=== PATIENT | male | born 1945 | race Caucasian/White ===

== ENCOUNTER 2020-07-30 11:53 | Inpatient (IN) | payer MEDICARE ==
[~2020-07-30] VITALS: Ht 177.8 cm; Wt 73.1 kg
[~2020-07-30 11:53] MED LIST: ALBUTEROL; AUGMENTIN 875 M1 TA1 PO; FORADIL AEROLIZER; LISINOPRIL/HCTZ1 TA1 PO; Ventolin 02.5 MG/3 M INH
[2020-07-30 12:03] VITALS: BP 117/64
[2020-07-30 12:39] LABS: HEMATOCRIT 39.4 % (42.0-52.0); MEAN CELL VOLUME 86.4 fl (80.0-94.0); MEAN CORPUSCULAR HGB 28.3 pg (27.0-31.0); MEAN CORPUSCULAR HGB CONC 32.7 g/dl (33.0-37.0); MEAN PLATELET VOLUME 9.9 fl (9.6-12.3); PLATELET COUNT AUTOMATED 330 10*3/uL (130-400); RED BLOOD COUNT 4.56 10*6/uL (4.50-5.90); RED CELL DISTRI WIDTH 13.2 % (0-14.5); WHITE BLOOD COUNT 3.8 10*3/uL (4.8-10.8)
[2020-07-30 12:50] LABS: ACT PARTIAL THROMBO TIME 28.6 SECONDS (20.0-32.1); INTERNATIONAL NORM RATIO 1.1 (2.0-3.5)
[2020-07-30 12:54] LABS: ALBUMIN 3.7 gm/dl (3.1-4.5); ALKALINE PHOSPHATASE 58 U/L (45-117); BUN 38 mg/dl (7-24); CHLORIDE 86 mmol/L (98-107); CREATININE 1.14 mg/dL (0.70-1.30); SGOT/AST 28 IU/L (3-35); SGPT/ALT 27 U/L (12-78); SODIUM 130 mmol/L (136-145); TOTAL PROTEIN 7.7 gm/dL (6.4-8.2)
[2020-07-30 12:59] LABS: BASOPHILS 1 % (0-1); PLATELET SUFFICIENCY NORMAL (NORMAL); TOTAL CELLS COUNTED 100 #CELLS
[2020-07-30 14:56] LABS: ABG BASE EXCESS 9.6 mmol/L (-2.0-2.0); ARTERIAL BLOOD GAS PH 7.44 (7.35-7.45)
[2020-07-30] MEDS ORDERED: ASPIRIN ADULT L81 M2 PO (15:13)
[2020-07-30 20:00] VITALS: BP 123/86
[2020-07-30 20:41] LABS: BILIRUBIN Negative (Negative); BLOOD Negative (Negative); CLARITY Clear (Clear); COLOR Dark Yellow (Yellow); GLUCOSE Negative (Negative); KETONE 1+ (Negative); LEUKO ESTERASE Negative (Negative); NITRITE Negative (Negative); SPECIFIC GRAVITY 1.025 (1.001-1.030)
[2020-07-30 20:52] LABS: BACTERIA TRACE
[2020-07-31] VITALS: BP 113/72
[2020-07-31 06:21] LABS: HEMATOCRIT 36.7 % (42.0-52.0); MEAN CELL VOLUME 89.1 fl (80.0-94.0); MEAN CORPUSCULAR HGB 28.2 pg (27.0-31.0); MEAN CORPUSCULAR HGB CONC 31.6 g/dl (33.0-37.0); MEAN PLATELET VOLUME 10.4 fl (9.6-12.3); PLATELET COUNT AUTOMATED 276 10*3/uL (130-400); RED BLOOD COUNT 4.12 10*6/uL (4.50-5.90); RED CELL DISTRI WIDTH 13.3 % (0-14.5); WHITE BLOOD COUNT 5.9 10*3/uL (4.8-10.8)
[2020-07-31 06:31] LABS: ALKALINE PHOSPHATASE 45 U/L (45-117); BUN 36 mg/dl (7-24); CHLORIDE 89 mmol/L (98-107); CHOLESTEROL 112 mg/dL (<200); CPK 141 U/L (39-308); CREATININE 0.89 mg/dL (0.70-1.30); FREE T4 1.33 ng/dl (0.76-1.46); HDL CHOLESTEROL 40 mg/dl (40-60); LDH 181 U/L (87-241); LDL CHOLESTEROL 56 mg/dL (9-159); POTASSIUM 3.4 mmol/L (3.5-5.1); SGOT/AST 22 IU/L (3-35); SGPT/ALT 21 U/L (12-78); SODIUM 132 mmol/L (136-145); TOTAL PROTEIN 6.5 gm/dL (6.4-8.2); TRIGLYCERIDES 81 mg/dl (<150); VLDL CHOLESTEROL 16 mg/dL (6-40)
[2020-07-31 06:37] LABS: THYROID STIM HORMONE (HS) 0.627 uIU/ml (0.358-4.75)
[2020-07-31 07:08] LABS: PLATELET SUFFICIENCY NORMAL (NORMAL); TOTAL CELLS COUNTED 100 #CELLS
[2020-07-31 07:45] LABS: FERRITIN 689.8 ng/mL (22.0-322.0)
[2020-07-31 08:00] VITALS: BP 109/56
[2020-07-31 12:00] VITALS: BP 103/55
[2020-07-31 16:00] VITALS: BP 107/62
[2020-07-31 20:00] VITALS: BP 116/49
[2020-08-01] VITALS: BP 104/60
[2020-08-01 06:06] LABS: ALBUMIN 2.8 gm/dl (3.1-4.5); BUN 40 mg/dl (7-24); CHLORIDE 97 mmol/L (98-107); CREATININE 0.81 mg/dL (0.70-1.30); LDH 201 U/L (87-241); POTASSIUM 4.1 mmol/L (3.5-5.1); SGOT/AST 18 IU/L (3-35); SGPT/ALT 20 U/L (12-78); SODIUM 137 mmol/L (136-145); TOTAL PROTEIN 6.1 gm/dL (6.4-8.2)
[2020-08-01 06:07] LABS: ALKALINE PHOSPHATASE 41 U/L (45-117); CPK 149 U/L (39-308)
[2020-08-01 06:17] LABS: HEMATOCRIT 37.8 % (42.0-52.0); MEAN CORPUSCULAR HGB 27.6 pg (27.0-31.0); MEAN CORPUSCULAR HGB CONC 30.7 g/dl (33.0-37.0); MEAN PLATELET VOLUME 10.4 fl (9.6-12.3); PLATELET COUNT AUTOMATED 309 10*3/uL (130-400); RED CELL DISTRI WIDTH 13.2 % (0-14.5); WHITE BLOOD COUNT 5.8 10*3/uL (4.8-10.8)
[2020-08-01 07:13] LABS: PLATELET SUFFICIENCY NORMAL (NORMAL); TOTAL CELLS COUNTED 100 #CELLS
[2020-08-01 08:00] VITALS: BP 126/59
[2020-08-01 12:00] VITALS: BP 141/57
[2020-08-01 16:00] VITALS: BP 128/67
[2020-08-01 20:00] VITALS: BP 146/73
[2020-08-02] VITALS (57 sets, daily range): BP systolic 60–135; BP diastolic 39–72
[2020-08-02 01:15] LABS: ABG BASE EXCESS 7.3 mmol/L (-2.0-2.0); ARTERIAL BLOOD GAS PH 7.367 (7.35-7.45)
[2020-08-02 05:23] LABS: ABG BASE EXCESS 3.5 mmol/L (-2.0-2.0); ARTERIAL BLOOD GAS PH 7.273 (7.35-7.45)
[2020-08-02 06:09] LABS: ALBUMIN 2.9 gm/dl (3.1-4.5); BUN 34 mg/dl (7-24); CHLORIDE 102 mmol/L (98-107); CREATININE 0.77 mg/dL (0.70-1.30); POTASSIUM 4.1 mmol/L (3.5-5.1); SGOT/AST 23 IU/L (3-35); SGPT/ALT 20 U/L (12-78); SODIUM 139 mmol/L (136-145); TOTAL PROTEIN 6.2 gm/dL (6.4-8.2)
[2020-08-02 06:10] LABS: HEMATOCRIT 42.4 % (42.0-52.0); MEAN CELL VOLUME 91.6 fl (80.0-94.0); MEAN CORPUSCULAR HGB 27.6 pg (27.0-31.0); MEAN CORPUSCULAR HGB CONC 30.2 g/dl (33.0-37.0); MEAN PLATELET VOLUME 10.4 fl (9.6-12.3); RED BLOOD COUNT 4.63 10*6/uL (4.50-5.90); RED CELL DISTRI WIDTH 13.2 % (0-14.5)
[2020-08-02 06:12] LABS: ALKALINE PHOSPHATASE 47 U/L (45-117); LDH 246 U/L (87-241)
[2020-08-02 06:20] LABS: CPK 95 U/L (39-308)
[2020-08-02 06:38] LABS: PLATELET COUNT AUTOMATED 466 10*3/uL (130-400)
[2020-08-02 07:15] LABS: TOTAL CELLS COUNTED 100 #CELLS
[2020-08-02 07:16] LABS: PLATELET SUFFICIENCY HIGH (NORMAL)
[2020-08-02 07:18] LABS: WHITE BLOOD COUNT 38.5 10*3/uL (4.8-10.8)
[2020-08-02 08:10] LABS: ABG BASE EXCESS 3.9 mmol/L (-2.0-2.0); ARTERIAL BLOOD GAS PH 7.367 (7.35-7.45)
[2020-08-02 15:43] LABS: ABG BASE EXCESS 2.6 mmol/L (-2.0-2.0); ARTERIAL BLOOD GAS PH 7.386 (7.35-7.45)
[2020-08-03] VITALS (96 sets, daily range): BP systolic 86–142; BP diastolic 15–66
[2020-08-03 06:06] LABS: ALBUMIN 2.2 gm/dl (3.1-4.5); CHLORIDE 107 mmol/L (98-107); CREATININE 0.62 mg/dL (0.70-1.30); POTASSIUM 3.7 mmol/L (3.5-5.1); SGOT/AST 20 IU/L (3-35); SGPT/ALT 16 U/L (12-78); SODIUM 140 mmol/L (136-145)
[2020-08-03 06:08] LABS: ALKALINE PHOSPHATASE 46 U/L (45-117); TOTAL PROTEIN 4.7 gm/dL (6.4-8.2)
[2020-08-03 06:12] LABS: BUN 20 mg/dl (7-24)
[2020-08-03 06:39] LABS: HEMATOCRIT 38.2 % (42.0-52.0); MEAN CELL VOLUME 90.7 fl (80.0-94.0); MEAN CORPUSCULAR HGB 28.3 pg (27.0-31.0); MEAN CORPUSCULAR HGB CONC 31.2 g/dl (33.0-37.0); MEAN PLATELET VOLUME 10.4 fl (9.6-12.3); PLATELET COUNT AUTOMATED 397 10*3/uL (130-400); RED BLOOD COUNT 4.21 10*6/uL (4.50-5.90); RED CELL DISTRI WIDTH 13.5 % (0-14.5); WHITE BLOOD COUNT 33.8 10*3/uL (4.8-10.8)
[2020-08-03 07:25] LABS: ABG BASE EXCESS 2.7 mmol/L (-2.0-2.0); ARTERIAL BLOOD GAS PH 7.373 (7.35-7.45)
[2020-08-03 07:50] LABS: PLATELET SUFFICIENCY NORMAL (NORMAL); TOTAL CELLS COUNTED 100 #CELLS
[2020-08-03 12:52] LABS: ABG BASE EXCESS 0.4 mmol/L (-2.0-2.0); ARTERIAL BLOOD GAS PH 7.342 (7.35-7.45)
[2020-08-03 15:54] LABS: ABG BASE EXCESS 0.4 mmol/L (-2.0-2.0); ARTERIAL BLOOD GAS PH 7.354 (7.35-7.45)
[2020-08-04] VITALS (34 sets, daily range): BP systolic 90–125; BP diastolic 49–74
[2020-08-04 06:14] LABS: HEMATOCRIT 36.6 % (42.0-52.0); MEAN CELL VOLUME 90.8 fl (80.0-94.0); MEAN CORPUSCULAR HGB CONC 30.9 g/dl (33.0-37.0); MEAN PLATELET VOLUME 10.3 fl (9.6-12.3); PLATELET COUNT AUTOMATED 362 10*3/uL (130-400); RED BLOOD COUNT 4.03 10*6/uL (4.50-5.90); RED CELL DISTRI WIDTH 13.7 % (0-14.5); WHITE BLOOD COUNT 26.3 10*3/uL (4.8-10.8)
[2020-08-04 06:30] LABS: BUN 22 mg/dl (7-24); CHLORIDE 112 mmol/L (98-107); POTASSIUM 4.1 mmol/L (3.5-5.1); SGOT/AST 23 IU/L (3-35); SGPT/ALT 19 U/L (12-78); SODIUM 142 mmol/L (136-145)
[2020-08-04 06:33] LABS: ALKALINE PHOSPHATASE 47 U/L (45-117); CREATININE 0.58 mg/dL (0.70-1.30)
[2020-08-04 06:39] LABS: BURR CELLS FEW; PLATELET SUFFICIENCY NORMAL (NORMAL); TOTAL CELLS COUNTED 100 #CELLS
[2020-08-04 07:17] LABS: ABG BASE EXCESS 2.2 mmol/L (-2.0-2.0); ARTERIAL BLOOD GAS PH 7.4 (7.35-7.45)
[2020-08-05] VITALS: BP 125/71
[2020-08-05 04:00] VITALS: BP 121/72
[2020-08-05 06:11] LABS: ALBUMIN 1.8 gm/dl (3.1-4.5); ALKALINE PHOSPHATASE 67 U/L (45-117); BUN 27 mg/dl (7-24); CHLORIDE 115 mmol/L (98-107); CREATININE 0.61 mg/dL (0.70-1.30); POTASSIUM 4.1 mmol/L (3.5-5.1); SGOT/AST 20 IU/L (3-35); SGPT/ALT 18 U/L (12-78); SODIUM 147 mmol/L (136-145); TOTAL PROTEIN 4.7 gm/dL (6.4-8.2)
[2020-08-05 06:21] LABS: HEMATOCRIT 33.3 % (42.0-52.0); MEAN CORPUSCULAR HGB 27.6 pg (27.0-31.0); PLATELET COUNT AUTOMATED 340 10*3/uL (130-400); RED BLOOD COUNT 3.62 10*6/uL (4.50-5.90); RED CELL DISTRI WIDTH 13.8 % (0-14.5); WHITE BLOOD COUNT 20.2 10*3/uL (4.8-10.8)
[2020-08-05 07:00] LABS: TOTAL CELLS COUNTED 100 #CELLS
[2020-08-05 07:01] LABS: BURR CELLS FEW; PLATELET SUFFICIENCY NORMAL (NORMAL)
[2020-08-05 07:27] LABS: ABG BASE EXCESS 4.4 mmol/L (-2.0-2.0); ARTERIAL BLOOD GAS PH 7.417 (7.35-7.45)
[2020-08-05 08:00] VITALS: BP 112/71
[2020-08-05 12:00] VITALS: BP 126/67
[2020-08-05 13:18] LABS: ABG BASE EXCESS 4.3 mmol/L (-2.0-2.0); ARTERIAL BLOOD GAS PH 7.427 (7.35-7.45)
[2020-08-05 16:00] VITALS: BP 125/63
[2020-08-05 16:24] LABS: ABG BASE EXCESS 4.2 mmol/L (-2.0-2.0); ARTERIAL BLOOD GAS PH 7.407 (7.35-7.45)
[2020-08-05 19:56] LABS: ABG BASE EXCESS 4.8 mmol/L (-2.0-2.0); ARTERIAL BLOOD GAS PH 7.421 (7.35-7.45)
[2020-08-05 20:00] VITALS: BP 108/63
[2020-08-06] VITALS: BP 129/69
[2020-08-06 04:00] VITALS: BP 132/62
[2020-08-06 06:09] LABS: HEMATOCRIT 32.5 % (42.0-52.0); MEAN CELL VOLUME 91.3 fl (80.0-94.0); MEAN CORPUSCULAR HGB 27.8 pg (27.0-31.0); MEAN CORPUSCULAR HGB CONC 30.5 g/dl (33.0-37.0); MEAN PLATELET VOLUME 10.3 fl (9.6-12.3); PLATELET COUNT AUTOMATED 316 10*3/uL (130-400); RED BLOOD COUNT 3.56 10*6/uL (4.50-5.90); WHITE BLOOD COUNT 18.4 10*3/uL (4.8-10.8)
[2020-08-06 06:23] LABS: ALBUMIN 1.8 gm/dl (3.1-4.5); BUN 19 mg/dl (7-24); CHLORIDE 105 mmol/L (98-107); CREATININE 0.46 mg/dL (0.70-1.30); POTASSIUM 3.7 mmol/L (3.5-5.1); SGOT/AST 22 IU/L (3-35); SGPT/ALT 20 U/L (12-78); SODIUM 142 mmol/L (136-145)
[2020-08-06 06:27] LABS: ALKALINE PHOSPHATASE 64 U/L (45-117); PREALBUMIN 9 mg/dl (20-40); TOTAL PROTEIN 4.6 gm/dL (6.4-8.2)
[2020-08-06 06:46] LABS: PLATELET SUFFICIENCY NORMAL (NORMAL); TOTAL CELLS COUNTED 100 #CELLS; TOXIC GRANULATION SLIGHT
[2020-08-06 06:47] LABS: OVALOCYTES FEW
[2020-08-06 07:35] LABS: ABG BASE EXCESS 6.6 mmol/L (-2.0-2.0); ARTERIAL BLOOD GAS PH 7.456 (7.35-7.45)
[2020-08-06 08:00] VITALS: BP 134/62
[2020-08-06 12:00] VITALS: BP 121/63
[2020-08-06 16:00] VITALS: BP 130/60
[2020-08-06 20:00] VITALS: BP 132/76
[2020-08-07] VITALS: BP 129/67
[2020-08-07 04:03] VITALS: BP 121/64
[2020-08-07 06:03] LABS: HEMATOCRIT 35.7 % (42.0-52.0); MEAN CELL VOLUME 92.7 fl (80.0-94.0); MEAN CORPUSCULAR HGB 28.3 pg (27.0-31.0); MEAN CORPUSCULAR HGB CONC 30.5 g/dl (33.0-37.0); MEAN PLATELET VOLUME 10.1 fl (9.6-12.3); PLATELET COUNT AUTOMATED 331 10*3/uL (130-400); RED BLOOD COUNT 3.85 10*6/uL (4.50-5.90); RED CELL DISTRI WIDTH 13.9 % (0-14.5); WHITE BLOOD COUNT 20.1 10*3/uL (4.8-10.8)
[2020-08-07 06:10] LABS: ALBUMIN 1.8 gm/dl (3.1-4.5); ALKALINE PHOSPHATASE 46 U/L (45-117); BUN 17 mg/dl (7-24); CHLORIDE 108 mmol/L (98-107); CREATININE 0.38 mg/dL (0.70-1.30); POTASSIUM 3.9 mmol/L (3.5-5.1); SGOT/AST 21 IU/L (3-35); SGPT/ALT 20 U/L (12-78); SODIUM 144 mmol/L (136-145); TOTAL PROTEIN 4.9 gm/dL (6.4-8.2)
[2020-08-07 06:55] LABS: PLATELET SUFFICIENCY NORMAL (NORMAL); POLYCHROMASIA SLIGHT; TOTAL CELLS COUNTED 100 #CELLS
[2020-08-07 06:56] LABS: TOXIC GRANULATION SLIGHT
[2020-08-07 08:00] VITALS: BP 126/68
[2020-08-07 12:00] VITALS: BP 125/70
[2020-08-07 16:00] VITALS: BP 152/74
[2020-08-07 20:00] VITALS: BP 138/66
[2020-08-08] VITALS: BP 132/75
[2020-08-08 04:00] VITALS: BP 130/69
[2020-08-08 04:57] LABS: HEMATOCRIT 34.8 % (42.0-52.0); MEAN CORPUSCULAR HGB 28.3 pg (27.0-31.0); MEAN CORPUSCULAR HGB CONC 30.5 g/dl (33.0-37.0); MEAN PLATELET VOLUME 9.6 fl (9.6-12.3); PLATELET COUNT AUTOMATED 370 10*3/uL (130-400); RED BLOOD COUNT 3.74 10*6/uL (4.50-5.90); RED CELL DISTRI WIDTH 13.6 % (0-14.5); WHITE BLOOD COUNT 20.8 10*3/uL (4.8-10.8)
[2020-08-08 05:20] LABS: ALBUMIN 1.8 gm/dl (3.1-4.5); ALKALINE PHOSPHATASE 46 U/L (45-117); BUN 16 mg/dl (7-24); CHLORIDE 106 mmol/L (98-107); SGOT/AST 17 IU/L (3-35); SGPT/ALT 19 U/L (12-78); SODIUM 144 mmol/L (136-145); TOTAL PROTEIN 4.8 gm/dL (6.4-8.2)
[2020-08-08 05:43] LABS: TOTAL CELLS COUNTED 100 #CELLS
[2020-08-08 05:44] LABS: BURR CELLS FEW; PLATELET SUFFICIENCY NORMAL (NORMAL); TARGET CELLS FEW
[2020-08-08 08:00] VITALS: BP 129/70
[2020-08-08 12:00] VITALS: BP 148/80
[2020-08-08 16:00] VITALS: BP 125/68
[2020-08-08 20:00] VITALS: BP 135/66
[2020-08-09] VITALS: BP 120/70
[2020-08-09 04:00] VITALS: BP 113/57
[2020-08-09 05:48] LABS: ALBUMIN 1.8 gm/dl (3.1-4.5); ALKALINE PHOSPHATASE 47 U/L (45-117); BUN 14 mg/dl (7-24); CHLORIDE 105 mmol/L (98-107); CREATININE 0.37 mg/dL (0.70-1.30); POTASSIUM 3.7 mmol/L (3.5-5.1); SGOT/AST 21 IU/L (3-35); SGPT/ALT 22 U/L (12-78); SODIUM 144 mmol/L (136-145); TOTAL PROTEIN 4.9 gm/dL (6.4-8.2)
[2020-08-09 06:06] LABS: HEMATOCRIT 32.3 % (42.0-52.0); MEAN CELL VOLUME 95.3 fl (80.0-94.0); MEAN CORPUSCULAR HGB CONC 29.4 g/dl (33.0-37.0); PLATELET COUNT AUTOMATED 392 10*3/uL (130-400); RED BLOOD COUNT 3.39 10*6/uL (4.50-5.90); RED CELL DISTRI WIDTH 13.6 % (0-14.5)
[2020-08-09 07:40] LABS: PLATELET SUFFICIENCY NORMAL (NORMAL); TOTAL CELLS COUNTED 100 #CELLS
[2020-08-09 08:00] VITALS: BP 110/65
[2020-08-09 12:00] VITALS: BP 116/62
[2020-08-09 16:00] VITALS: BP 122/63
[2020-08-09 20:00] VITALS: BP 127/67
[2020-08-10] VITALS: BP 123/63
[2020-08-10 04:00] VITALS: BP 120/68
[2020-08-10 05:28] LABS: ALBUMIN 1.7 gm/dl (3.1-4.5); BUN 15 mg/dl (7-24); CHLORIDE 108 mmol/L (98-107); CREATININE 0.33 mg/dL (0.70-1.30); POTASSIUM 3.4 mmol/L (3.5-5.1); SGOT/AST 26 IU/L (3-35); SGPT/ALT 24 U/L (12-78); SODIUM 151 mmol/L (136-145); TOTAL PROTEIN 5.1 gm/dL (6.4-8.2)
[2020-08-10 05:29] LABS: ALKALINE PHOSPHATASE 49 U/L (45-117)
[2020-08-10 06:13] LABS: BASO % 0.2 % (0.0-1.0); EOS # 0.2 10*3/uL (0.0-0.4); EOS % 1.1 % (1.0-4.0); HEMATOCRIT 29.6 % (42.0-52.0); LYMPH % 6.5 % (27.0-41.0); MEAN CELL VOLUME 94.6 fl (80.0-94.0); MEAN CORPUSCULAR HGB 28.8 pg (27.0-31.0); MEAN CORPUSCULAR HGB CONC 30.4 g/dl (33.0-37.0); MEAN PLATELET VOLUME 9.8 fl (9.6-12.3); MONO # 0.9 10*3/uL (0.1-1.0); NEUT # 12.8 10*3/uL (2.3-7.9); NEUT % 84.9 % (47.0-73.0); PLATELET COUNT AUTOMATED 424 10*3/uL (130-400); RED BLOOD COUNT 3.13 10*6/uL (4.50-5.90); RED CELL DISTRI WIDTH 13.9 % (0-14.5); WHITE BLOOD COUNT 15.1 10*3/uL (4.8-10.8)
[2020-08-10 08:00] VITALS: BP 129/72
[2020-08-10 12:00] VITALS: BP 110/52
[2020-08-10 16:00] VITALS: BP 106/45
[2020-08-10 20:00] VITALS: BP 123/66
[2020-08-11] VITALS: BP 115/62
[2020-08-11 06:14] LABS: BASO % 0.2 % (0.0-1.0); EOS # 0.2 10*3/uL (0.0-0.4); EOS % 1.5 % (1.0-4.0); HEMATOCRIT 29.7 % (42.0-52.0); MEAN CELL VOLUME 93.7 fl (80.0-94.0); MEAN CORPUSCULAR HGB 27.8 pg (27.0-31.0); MEAN CORPUSCULAR HGB CONC 29.6 g/dl (33.0-37.0); MEAN PLATELET VOLUME 9.9 fl (9.6-12.3); MONO # 0.8 10*3/uL (0.1-1.0); MONO % 6.7 % (3.0-9.0); NEUT # 10.2 10*3/uL (2.3-7.9); NEUT % 82.6 % (47.0-73.0); PLATELET COUNT AUTOMATED 489 10*3/uL (130-400); RED BLOOD COUNT 3.17 10*6/uL (4.50-5.90); RED CELL DISTRI WIDTH 13.7 % (0-14.5); WHITE BLOOD COUNT 12.3 10*3/uL (4.8-10.8)
[2020-08-11 06:29] LABS: ALBUMIN 1.9 gm/dl (3.1-4.5); BUN 16 mg/dl (7-24); CHLORIDE 105 mmol/L (98-107); CREATININE 0.44 mg/dL (0.70-1.30); POTASSIUM 3.7 mmol/L (3.5-5.1); SGOT/AST 26 IU/L (3-35); SGPT/ALT 26 U/L (12-78); SODIUM 145 mmol/L (136-145)
[2020-08-11 06:31] LABS: ALKALINE PHOSPHATASE 55 U/L (45-117)
[2020-08-11 08:00] VITALS: BP 125/65
[2020-08-11 12:00] VITALS: BP 111/56
[2020-08-11] MEDS ORDERED: TAMSULOSIN HCL0.4 MG PO (15:51)
[2020-08-11] MEDS ORDERED: PROTONIX40 MG PO (15:51)
[2020-08-11 16:00] VITALS: BP 126/60
== END 2020-08-11 18:31 | DRG 853 ==
LOC: ED 11:53 → EDHOLD 14:06 → ICCU 14:06 → 4E 14:06 → ICCU 08-02 02:05 → 4E 08-10 17:34
PROVIDERS: Emergency Medicine; Internal Medicine; Internal Medicine Critical Care Medicine; Registered Nurse; Social Worker Clinical; ADMIT Internal Medicine; ATTEND Internal Medicine
PROC: XW033E5 Introduction of Remdesivir Anti-infective into Peripheral Vein, Percutaneous Approach, New Technology Group 5 (ICD-10-PCS; principal; 2020-07-31)
PROC: 0D9670Z Drainage of Stomach with Drainage Device, Via Natural or Artificial Opening (ICD-10-PCS; 2020-07-31)
PROC: 0DBF0ZZ Excision of Right Large Intestine, Open Approach (ICD-10-PCS; 2020-08-02)
PROC: 5A1945Z Respiratory Ventilation, 24-96 Consecutive Hours (ICD-10-PCS; 2020-08-02)
PROC: 0BH18EZ Insertion of Endotracheal Airway into Trachea, Via Natural or Artificial Opening Endoscopic (ICD-10-PCS; 2020-08-02)
PROC: 0WJF4ZZ Inspection of Abdominal Wall, Percutaneous Endoscopic Approach (ICD-10-PCS; 2020-08-02)
PROC: 0DTJ0ZZ Resection of Appendix, Open Approach (ICD-10-PCS; 2020-08-02)
PROC: 03HC33Z Insertion of Infusion Device into Left Radial Artery, Percutaneous Approach (ICD-10-PCS; 2020-08-02)
PROC: B54NZZA Ultrasonography of Left Upper Extremity Veins, Guidance (ICD-10-PCS; 2020-08-02)
PROC: 02HV33Z Insertion of Infusion Device into Superior Vena Cava, Percutaneous Approach (ICD-10-PCS; 2020-08-02)
PROC: B548ZZA Ultrasonography of Superior Vena Cava, Guidance (ICD-10-PCS; 2020-08-02)
PROC: 5A09357 Assistance with Respiratory Ventilation, Less than 24 Consecutive Hours, Continuous Positive Airway Pressure (ICD-10-PCS; 2020-08-05)
PROC: 0B928ZZ Drainage of Carina, Via Natural or Artificial Opening Endoscopic (ICD-10-PCS; 2020-08-05)
PROC: 0B948ZZ Drainage of Right Upper Lobe Bronchus, Via Natural or Artificial Opening Endoscopic (ICD-10-PCS; 2020-08-05)
PROC: 0B988ZZ Drainage of Left Upper Lobe Bronchus, Via Natural or Artificial Opening Endoscopic (ICD-10-PCS; 2020-08-05)
PROC: 0B918ZZ Drainage of Trachea, Via Natural or Artificial Opening Endoscopic (ICD-10-PCS; 2020-08-05)
PROC: 0B958ZZ Drainage of Right Middle Lobe Bronchus, Via Natural or Artificial Opening Endoscopic (ICD-10-PCS; 2020-08-05)
PROC: 0B938ZZ Drainage of Right Main Bronchus, Via Natural or Artificial Opening Endoscopic (ICD-10-PCS; 2020-08-05)
PROC: 0B978ZZ Drainage of Left Main Bronchus, Via Natural or Artificial Opening Endoscopic (ICD-10-PCS; 2020-08-05)
PROC: 0B968ZZ Drainage of Right Lower Lobe Bronchus, Via Natural or Artificial Opening Endoscopic (ICD-10-PCS; 2020-08-05)
PROC: 0B9B8ZZ Drainage of Left Lower Lobe Bronchus, Via Natural or Artificial Opening Endoscopic (ICD-10-PCS; 2020-08-05)
PROC: 0B998ZZ Drainage of Lingula Bronchus, Via Natural or Artificial Opening Endoscopic (ICD-10-PCS; 2020-08-05)
PROC: 5A1935Z Respiratory Ventilation, Less than 24 Consecutive Hours (ICD-10-PCS; 2020-08-06)
PROC: 02HV33Z Insertion of Infusion Device into Superior Vena Cava, Percutaneous Approach (ICD-10-PCS; 2020-08-07)
PROC: 5A0935A Assistance with Respiratory Ventilation, Less than 24 Consecutive Hours, High Flow/Velocity Cannula (ICD-10-PCS; 2020-08-07)
PROC: 5A0945A Assistance with Respiratory Ventilation, 24-96 Consecutive Hours, High Flow/Velocity Cannula (ICD-10-PCS; 2020-08-08)
PROC: BD11YZZ Fluoroscopy of Esophagus using Other Contrast (ICD-10-PCS; 2020-08-11)
DX: A41.01 Sepsis due to Methicillin susceptible Staphylococcus aureus (principal); J69.0 Pneumonitis due to inhalation of food and vomit; U07.1 COVID-19; J96.21 Acute and chronic respiratory failure with hypoxia; J96.22 Acute and chronic respiratory failure with hypercapnia; K35.33 Acute appendicitis with perforation, localized peritonitis, and gangrene, with abscess; E87.1 Hypo-osmolality and hyponatremia; K56.50 Intestinal adhesions [bands], unspecified as to partial versus complete obstruction; J44.0 Chronic obstructive pulmonary disease with (acute) lower respiratory infection; E87.2 Acidosis; E87.0 Hyperosmolality and hypernatremia; Z68.1 Body mass index [BMI] 19.9 or less, adult; K57.32 Diverticulitis of large intestine without perforation or abscess without bleeding; E46 Unspecified protein-calorie malnutrition; K21.9 Gastro-esophageal reflux disease without esophagitis; R73.9 Hyperglycemia, unspecified; D50.9 Iron deficiency anemia, unspecified; E87.6 Hypokalemia; E87.8 Other disorders of electrolyte and fluid balance, not elsewhere classified; E88.09 Other disorders of plasma-protein metabolism, not elsewhere classified; E83.39 Other disorders of phosphorus metabolism; J44.9 Chronic obstructive pulmonary disease, unspecified; I10 Essential (primary) hypertension; Z20.822 Contact with and (suspected) exposure to COVID-19; Z79.82 Long term (current) use of aspirin; Z53.31 Laparoscopic surgical procedure converted to open procedure; Z90.49 Acquired absence of other specified parts of digestive tract; B96.1 Klebsiella pneumoniae [K. pneumoniae] as the cause of diseases classified elsewhere; Z79.51 Long term (current) use of inhaled steroids; Z79.899 Other long term (current) drug therapy; I95.9 Hypotension, unspecified

== ENCOUNTER 2020-08-19 15:28 | Emergency (ER) | payer MEDICARE ==
[~2020-08-19] VITALS: Ht 177.8 cm; Wt 65.3 kg
[~2020-08-19 15:28] MED LIST changes: +ASPIRIN ADULT L81 M2 PO; +PROTONIX40 MG PO; +TAMSULOSIN HCL0.4 MG PO
[2020-08-19 16:31] LABS: BASO % 0.6 % (0.0-1.0); EOS # 0.1 10*3/uL (0.0-0.4); EOS % 0.9 % (1.0-4.0); HEMATOCRIT 26.8 % (42.0-52.0); LYMPH # 0.8 10*3/uL (1.3-4.4); MEAN CORPUSCULAR HGB 28.4 pg (27.0-31.0); MEAN CORPUSCULAR HGB CONC 29.9 g/dl (33.0-37.0); MEAN PLATELET VOLUME 9.4 fl (9.6-12.3); MONO # 0.6 10*3/uL (0.1-1.0); MONO % 9.2 % (3.0-9.0); NEUT # 4.9 10*3/uL (2.3-7.9); PLATELET COUNT AUTOMATED 522 10*3/uL (130-400); RED BLOOD COUNT 2.82 10*6/uL (4.50-5.90); RED CELL DISTRI WIDTH 14.9 % (0-14.5); WHITE BLOOD COUNT 6.4 10*3/uL (4.8-10.8)
[2020-08-19 16:43] LABS: ACT PARTIAL THROMBO TIME 27.7 SECONDS (20.0-32.1); INTERNATIONAL NORM RATIO 1.1 (2.0-3.5)
[2020-08-19 16:53] LABS: ALBUMIN 2.6 gm/dl (3.1-4.5); ALKALINE PHOSPHATASE 66 U/L (45-117); BUN 14 mg/dl (7-24); CREATININE 0.53 mg/dL (0.70-1.30); IRON 28 ug/dL (65-175); LIPASE 429 U/L (73-393); SGOT/AST 34 IU/L (3-35); TOTAL IRON BINDING CAPACITY 314 ug/dl (250-450)
[2020-08-19 16:54] LABS: SGPT/ALT 24 U/L (12-78); TROPONIN I 0.017 ng/ml (<0.045)
[2020-08-19 16:57] LABS: CHLORIDE 99 mmol/L (98-107); POTASSIUM 4.4 mmol/L (3.5-5.1); SODIUM 139 mmol/L (136-145)
== END 2020-08-19 17:59 ==
LOC: ED 15:28
PROVIDERS: Emergency Medicine
DX: D64.9 Anemia, unspecified (principal); Z79.899 Other long term (current) drug therapy; Z79.82 Long term (current) use of aspirin; Z98.890 Other specified postprocedural states; Z87.891 Personal history of nicotine dependence

== ENCOUNTER 2020-08-23 11:40 | Inpatient (IN) | payer MEDICARE ==
[~2020-08-23] VITALS: Ht 177.8 cm; Wt 62.6 kg
[2020-08-23] VITALS (7 sets, daily range): BP systolic 91–135; BP diastolic 33–68
[2020-08-23 12:13] LABS: HEMATOCRIT 31.2 % (42.0-52.0); MEAN CORPUSCULAR HGB 28.9 pg (27.0-31.0); MEAN CORPUSCULAR HGB CONC 30.8 g/dl (33.0-37.0); MEAN PLATELET VOLUME 9.5 fl (9.6-12.3); PLATELET COUNT AUTOMATED 413 10*3/uL (130-400); RED BLOOD COUNT 3.32 10*6/uL (4.50-5.90); RED CELL DISTRI WIDTH 15.2 % (0-14.5); WHITE BLOOD COUNT 24.4 10*3/uL (4.8-10.8)
[2020-08-23 12:24] LABS: ACT PARTIAL THROMBO TIME 29.7 SECONDS (20.0-32.1); INTERNATIONAL NORM RATIO 1.1 (2.0-3.5)
[2020-08-23 12:30] LABS: ALBUMIN 2.7 gm/dl (3.1-4.5); ALKALINE PHOSPHATASE 85 U/L (45-117); BUN 17 mg/dl (7-24); CHLORIDE 96 mmol/L (98-107); POTASSIUM 4.4 mmol/L (3.5-5.1); SGOT/AST 17 IU/L (3-35); SGPT/ALT 20 U/L (12-78); SODIUM 135 mmol/L (136-145); TOTAL CELLS COUNTED 100 #CELLS; TOTAL PROTEIN 7.1 gm/dL (6.4-8.2)
[2020-08-23 12:31] LABS: PLATELET SUFFICIENCY HIGH (NORMAL); POLYCHROMASIA SLIGHT; TROPONIN I < 0.015 ng/ml (<0.045)
[2020-08-23 13:02] LABS: ABG BASE EXCESS 6.4 mmol/L (-2.0-2.0); ARTERIAL BLOOD GAS PH 7.362 (7.35-7.45)
[2020-08-23] MEDS ORDERED: BENEPROTEIN1 EACH PO (13:55)
[2020-08-23] MEDS ORDERED: MIRTAZAPINE7.5 MG PO (14:01)
[2020-08-23 16:41] LABS: BILIRUBIN Negative (Negative); BLOOD Negative (Negative); CLARITY Clear (Clear); COLOR Yellow (Yellow); GLUCOSE Negative (Negative); KETONE Negative (Negative); LEUKO ESTERASE Negative (Negative); NITRITE Negative (Negative); SPECIFIC GRAVITY 1.015 (1.001-1.030); UROBILINOGEN 0.2 E.U./dl (0.0-1.0)
[2020-08-23 17:02] LABS: BACTERIA TRACE; WBC 0-2 wbc/hpf (0-5)
[2020-08-24] VITALS: BP 99/54
[2020-08-24 04:00] VITALS: BP 100/53
[2020-08-24 06:09] LABS: BASO % 0.2 % (0.0-1.0); EOS % 0.1 % (1.0-4.0); LYMPH # 0.6 10*3/uL (1.3-4.4); LYMPH % 4.1 % (27.0-41.0); MEAN CELL VOLUME 95.1 fl (80.0-94.0); MEAN CORPUSCULAR HGB 28.5 pg (27.0-31.0); MONO # 1.1 10*3/uL (0.1-1.0); MONO % 7.3 % (3.0-9.0); NEUT # 12.6 10*3/uL (2.3-7.9); NEUT % 87.9 % (47.0-73.0); PLATELET COUNT AUTOMATED 330 10*3/uL (130-400); RED BLOOD COUNT 2.63 10*6/uL (4.50-5.90); RED CELL DISTRI WIDTH 15.3 % (0-14.5); WHITE BLOOD COUNT 14.3 10*3/uL (4.8-10.8)
[2020-08-24 06:13] LABS: ALBUMIN 2.2 gm/dl (3.1-4.5); ALKALINE PHOSPHATASE 66 U/L (45-117); BUN 17 mg/dl (7-24); CHLORIDE 98 mmol/L (98-107); CREATININE 0.58 mg/dL (0.70-1.30); POTASSIUM 3.8 mmol/L (3.5-5.1); SGOT/AST 19 IU/L (3-35); SGPT/ALT 17 U/L (12-78); SODIUM 138 mmol/L (136-145); TOTAL PROTEIN 5.8 gm/dL (6.4-8.2)
[2020-08-24 08:00] VITALS: BP 111/61
[2020-08-24 12:00] VITALS: BP 102/57
[2020-08-24 16:00] VITALS: BP 126/67
[2020-08-24 20:00] VITALS: BP 117/70
[2020-08-25] VITALS: BP 114/66
[2020-08-25 04:00] VITALS: BP 118/63
[2020-08-25 06:07] LABS: BUN 18 mg/dl (7-24); CHLORIDE 99 mmol/L (98-107); POTASSIUM 4.1 mmol/L (3.5-5.1); SODIUM 141 mmol/L (136-145)
[2020-08-25 06:29] LABS: BASO % 0.4 % (0.0-1.0); EOS # 0.1 10*3/uL (0.0-0.4); EOS % 0.9 % (1.0-4.0); HEMATOCRIT 25.6 % (42.0-52.0); LYMPH # 0.6 10*3/uL (1.3-4.4); LYMPH % 7.3 % (27.0-41.0); MEAN CELL VOLUME 95.2 fl (80.0-94.0); MEAN CORPUSCULAR HGB 27.9 pg (27.0-31.0); MEAN CORPUSCULAR HGB CONC 29.3 g/dl (33.0-37.0); MEAN PLATELET VOLUME 9.8 fl (9.6-12.3); MONO # 0.9 10*3/uL (0.1-1.0); MONO % 10.6 % (3.0-9.0); NEUT # 6.6 10*3/uL (2.3-7.9); NEUT % 80.6 % (47.0-73.0); PLATELET COUNT AUTOMATED 366 10*3/uL (130-400); RED BLOOD COUNT 2.69 10*6/uL (4.50-5.90); RED CELL DISTRI WIDTH 14.9 % (0-14.5); WHITE BLOOD COUNT 8.2 10*3/uL (4.8-10.8)
[2020-08-25 08:00] VITALS: BP 110/68
[2020-08-25 12:00] VITALS: BP 117/58
[2020-08-25 16:00] VITALS: BP 110/60
[2020-08-25 20:00] VITALS: BP 151/63
[2020-08-26] VITALS: BP 112/52
[2020-08-26 08:00] VITALS: BP 122/75
[2020-08-26 12:00] VITALS: BP 140/63
[2020-08-26 16:00] VITALS: BP 105/54
[2020-08-26 20:00] VITALS: BP 106/51
[2020-08-27] VITALS: BP 108/50
[2020-08-27 06:21] LABS: HEMATOCRIT 26.8 % (42.0-52.0); LYMPH # 0.5 10*3/uL (1.3-4.4); LYMPH % 7.9 % (27.0-41.0); MEAN CELL VOLUME 93.7 fl (80.0-94.0); MEAN CORPUSCULAR HGB CONC 29.9 g/dl (33.0-37.0); MEAN PLATELET VOLUME 9.7 fl (9.6-12.3); MONO # 0.2 10*3/uL (0.1-1.0); MONO % 3.5 % (3.0-9.0); NEUT # 5.3 10*3/uL (2.3-7.9); NEUT % 88.3 % (47.0-73.0); PLATELET COUNT AUTOMATED 435 10*3/uL (130-400); RED BLOOD COUNT 2.86 10*6/uL (4.50-5.90); RED CELL DISTRI WIDTH 14.4 % (0-14.5); WHITE BLOOD COUNT 6.1 10*3/uL (4.8-10.8)
[2020-08-27 06:42] LABS: BUN 22 mg/dl (7-24); CHLORIDE 95 mmol/L (98-107); CREATININE 0.59 mg/dL (0.70-1.30); POTASSIUM 3.8 mmol/L (3.5-5.1); SODIUM 140 mmol/L (136-145)
[2020-08-27 08:00] VITALS: BP 117/60
[2020-08-27 12:00] VITALS: BP 158/84
[2020-08-27 12:36] LABS: ABG BASE EXCESS 18.3 mmol/L (-2.0-2.0); ARTERIAL BLOOD GAS PH 7.445 (7.35-7.45); ARTERIAL BLOOD GAS PO2 72.2 (80-90)
[2020-08-27 16:00] VITALS: BP 110/56
[2020-08-27 20:00] VITALS: BP 132/66
[2020-08-28] VITALS: BP 126/46
[2020-08-28 06:29] LABS: LYMPH # 0.5 10*3/uL (1.3-4.4); LYMPH % 7.1 % (27.0-41.0); MEAN CELL VOLUME 93.1 fl (80.0-94.0); MEAN CORPUSCULAR HGB 27.6 pg (27.0-31.0); MEAN CORPUSCULAR HGB CONC 29.6 g/dl (33.0-37.0); MEAN PLATELET VOLUME 9.2 fl (9.6-12.3); MONO # 0.3 10*3/uL (0.1-1.0); MONO % 4.5 % (3.0-9.0); NEUT # 6.5 10*3/uL (2.3-7.9); PLATELET COUNT AUTOMATED 441 10*3/uL (130-400); RED CELL DISTRI WIDTH 14.6 % (0-14.5); WHITE BLOOD COUNT 7.4 10*3/uL (4.8-10.8)
[2020-08-28 06:51] LABS: ALBUMIN 2.5 gm/dl (3.1-4.5); ALKALINE PHOSPHATASE 60 U/L (45-117); BUN 25 mg/dl (7-24); CHLORIDE 94 mmol/L (98-107); CREATININE 0.59 mg/dL (0.70-1.30); POTASSIUM 3.9 mmol/L (3.5-5.1); SGOT/AST 44 IU/L (3-35); SGPT/ALT 47 U/L (12-78); SODIUM 140 mmol/L (136-145); TOTAL PROTEIN 6.1 gm/dL (6.4-8.2)
[2020-08-28 08:00] VITALS: BP 126/61
[2020-08-28 12:00] VITALS: BP 125/99
[2020-08-28 16:00] VITALS: BP 106/64
[2020-08-28 20:00] VITALS: BP 120/67
[2020-08-29] VITALS: BP 122/61
[2020-08-29 08:00] VITALS: BP 119/66
[2020-08-29] MEDS ORDERED: LEVOFLOXACIN500 MG PO (11:13)
[2020-08-29] MEDS ORDERED: PREDNISONE10 MG PO (11:13)
[2020-08-29] MEDS ORDERED: LASIX40 MG PO (11:13)
[2020-08-29] MEDS ORDERED: ACETAZOLAMIDE250 MG PO (11:13)
[2020-08-29] MEDS ORDERED: AUGMENTIN XR 11 EACH PO (11:13)
== END 2020-08-29 13:47 | DRG 871 ==
LOC: ED 11:40 → EDHOLD 12:59 → ICCU 12:59 → 4E 08-25 10:24
PROVIDERS: Emergency Medicine; Internal Medicine; Registered Nurse; ADMIT Emergency Medicine; ATTEND Emergency Medicine
PROC: BD11YZZ Fluoroscopy of Esophagus using Other Contrast (ICD-10-PCS; principal; 2020-08-25)
DX: A41.9 Sepsis, unspecified organism (principal); I50.33 Acute on chronic diastolic (congestive) heart failure; J69.0 Pneumonitis due to inhalation of food and vomit; N17.0 Acute kidney failure with tubular necrosis; E43 Unspecified severe protein-calorie malnutrition; J96.21 Acute and chronic respiratory failure with hypoxia; J96.22 Acute and chronic respiratory failure with hypercapnia; E87.3 Alkalosis; E87.1 Hypo-osmolality and hyponatremia; J44.0 Chronic obstructive pulmonary disease with (acute) lower respiratory infection; J44.1 Chronic obstructive pulmonary disease with (acute) exacerbation; Z68.1 Body mass index [BMI] 19.9 or less, adult; R65.20 Severe sepsis without septic shock; Z20.822 Contact with and (suspected) exposure to COVID-19; K27.9 Peptic ulcer, site unspecified, unspecified as acute or chronic, without hemorrhage or perforation; K21.9 Gastro-esophageal reflux disease without esophagitis; I11.0 Hypertensive heart disease with heart failure; D64.9 Anemia, unspecified; E87.8 Other disorders of electrolyte and fluid balance, not elsewhere classified; R91.1 Solitary pulmonary nodule; B96.1 Klebsiella pneumoniae [K. pneumoniae] as the cause of diseases classified elsewhere; Z79.51 Long term (current) use of inhaled steroids; Z79.82 Long term (current) use of aspirin; Z79.899 Other long term (current) drug therapy

== ENCOUNTER 2021-10-25 09:04 | Inpatient (IN) | payer MEDICARE ==
[2021-10-25] VITALS (7 sets, daily range): BP systolic 82–103; BP diastolic 42–58
[~2021-10-25] VITALS: Ht 177.8 cm; Wt 60.0 kg
[~2021-10-25 09:04] MED LIST changes: +ACETAZOLAMIDE250 MG PO; +AUGMENTIN XR 11 EACH PO; +BENEPROTEIN1 EACH PO; +DOXYCYCLINE HY100 M3 PO; +IMODIUM A-D2 M2 PO; +LASIX40 MG PO; +LEVOFLOXACIN500 MG PO; +LISINOPRIL20 MG PO; +MIRTAZAPINE7.5 MG PO; +PREDNISONE10 MG PO
[2021-10-25] MEDS ORDERED: ASMANEX HFA13 G1 INH (09:23)
[2021-10-25] MEDS ORDERED: ALLERGY RELIEF10 M2 PO (09:24)
[2021-10-25] MEDS ORDERED: STIOLTO RESPIMAT4 GM INH (09:24)
[2021-10-25 09:41] LABS: HEMATOCRIT 38.1 % (42.0-52.0); MANUAL DIFF REFLEX YES; MEAN CELL VOLUME 90.1 fl (80.0-94.0); MEAN CORPUSCULAR HGB 28.1 pg (27.0-31.0); MEAN CORPUSCULAR HGB CONC 31.2 g/dl (33.0-37.0); MEAN PLATELET VOLUME 9.1 fl (9.6-12.3); PLATELET COUNT AUTOMATED 266 10*3/uL (130-400); RED BLOOD COUNT 4.23 10*6/uL (4.50-5.90); WHITE BLOOD COUNT 29.9 10*3/uL (4.8-10.8)
[2021-10-25 09:49] LABS: ABG BASE EXCESS 10.1 mmol/L (-2.0-2.0); ARTERIAL BLOOD GAS PH 7.454 (7.35-7.45); ARTERIAL BLOOD GAS PO2 76.3 (80-90)
[2021-10-25 09:51] LABS: ACT PARTIAL THROMBO TIME 31.7 SECONDS (20.0-32.1); INTERNATIONAL NORM RATIO 1.1 (2.0-3.5)
[2021-10-25 09:58] LABS: ALKALINE PHOSPHATASE 69 U/L (45-117); BUN 23 mg/dl (7-24); CHLORIDE 95 mmol/L (98-107); CREATININE 0.84 mg/dL (0.70-1.30); SGOT/AST 20 IU/L (3-35); SGPT/ALT 22 U/L (12-78); SODIUM 133 mmol/L (136-145)
[2021-10-25 10:06] LABS: TOTAL CELLS COUNTED 100 #CELLS
[2021-10-25 10:07] LABS: POLYCHROMASIA SLIGHT; TOXIC GRANULATION SLIGHT
[2021-10-25 10:08] LABS: PLATELET SUFFICIENCY NORMAL (NORMAL)
[2021-10-26] VITALS: BP 94/51
[2021-10-26 06:10] LABS: HEMATOCRIT 31.9 % (42.0-52.0); MEAN CELL VOLUME 90.1 fl (80.0-94.0); MEAN CORPUSCULAR HGB 28.2 pg (27.0-31.0); MEAN CORPUSCULAR HGB CONC 31.3 g/dl (33.0-37.0); PLATELET COUNT AUTOMATED 208 10*3/uL (130-400); RED BLOOD COUNT 3.54 10*6/uL (4.50-5.90); RED CELL DISTRI WIDTH 15.2 % (0-14.5)
[2021-10-26 06:15] LABS: BUN 18 mg/dl (7-24); CHLORIDE 99 mmol/L (98-107); SODIUM 132 mmol/L (136-145)
[2021-10-26 06:19] LABS: MANUAL DIFF REFLEX YES
[2021-10-26 06:24] LABS: ALKALINE PHOSPHATASE 55 U/L (45-117); CREATININE 0.48 mg/dL (0.70-1.30); SGOT/AST 17 IU/L (3-35); SGPT/ALT 15 U/L (12-78); TOTAL PROTEIN 5.8 gm/dL (6.4-8.2)
[2021-10-26 06:45] LABS: BURR CELLS FEW; PLATELET SUFFICIENCY NORMAL (NORMAL); POLYCHROMASIA SLIGHT; TOTAL CELLS COUNTED 100 #CELLS; TOXIC GRANULATION SLIGHT
[2021-10-26 08:00] VITALS: BP 160/62
[2021-10-26 11:54] VITALS: BP 198/90
[2021-10-26 12:00] VITALS: BP 111/54
[2021-10-26 16:00] VITALS: BP 116/61
[2021-10-26 20:00] VITALS: BP 135/66
[2021-10-27] VITALS (9 sets, daily range): BP systolic 115–127; BP diastolic 57–79
[2021-10-28] VITALS: BP 108/48
[2021-10-28 07:45] LABS: BASO % 0.1 % (0.0-1.0); EOS # 0.1 10*3/uL (0.0-0.4); EOS % 0.8 % (1.0-4.0); HEMATOCRIT 30.3 % (42.0-52.0); LYMPH # 0.4 10*3/uL (1.3-4.4); LYMPH % 3.5 % (27.0-41.0); MEAN CORPUSCULAR HGB 28.2 pg (27.0-31.0); MEAN PLATELET VOLUME 9.8 fl (9.6-12.3); MONO # 0.8 10*3/uL (0.1-1.0); MONO % 7.2 % (3.0-9.0); NEUT # 9.5 10*3/uL (2.3-7.9); PLATELET COUNT AUTOMATED 193 10*3/uL (130-400); RED BLOOD COUNT 3.33 10*6/uL (4.50-5.90); RED CELL DISTRI WIDTH 14.6 % (0-14.5); WHITE BLOOD COUNT 10.7 10*3/uL (4.8-10.8)
[2021-10-28 08:00] VITALS: BP 124/78
[2021-10-28 08:02] LABS: BUN 12 mg/dl (7-24); CHLORIDE 98 mmol/L (98-107); CREATININE 0.44 mg/dL (0.70-1.30); POTASSIUM 3.8 mmol/L (3.5-5.1); SODIUM 135 mmol/L (136-145)
[2021-10-28 12:00] VITALS: BP 129/76
[2021-10-28 14:09] LABS: ACID FAST SPEC PROCESSING Concentration (.)
[2021-10-28 16:00] VITALS: BP 117/61
[2021-10-28 20:00] VITALS: BP 124/58
[2021-10-29] VITALS: BP 108/66
[2021-10-29 08:00] VITALS: BP 133/76
[2021-10-29 12:00] VITALS: BP 142/70
[2021-10-29 16:00] VITALS: BP 118/64
[2021-10-29 20:00] VITALS: BP 129/66
[2021-10-30] VITALS: BP 120/66
[2021-10-30 05:16] LABS: BUN 15 mg/dl (7-24); CHLORIDE 98 mmol/L (98-107); CREATININE 0.33 mg/dL (0.70-1.30); POTASSIUM 3.6 mmol/L (3.5-5.1); SODIUM 138 mmol/L (136-145)
[2021-10-30 06:17] LABS: BASO % 0.2 % (0.0-1.0); EOS # 0.1 10*3/uL (0.0-0.4); EOS % 2.3 % (1.0-4.0); HEMATOCRIT 30.1 % (42.0-52.0); LYMPH # 0.6 10*3/uL (1.3-4.4); MEAN CELL VOLUME 90.4 fl (80.0-94.0); MEAN CORPUSCULAR HGB 28.2 pg (27.0-31.0); MEAN CORPUSCULAR HGB CONC 31.2 g/dl (33.0-37.0); MEAN PLATELET VOLUME 9.4 fl (9.6-12.3); MONO # 0.7 10*3/uL (0.1-1.0); MONO % 12.1 % (3.0-9.0); NEUT # 4.3 10*3/uL (2.3-7.9); NEUT % 74.2 % (47.0-73.0); PLATELET COUNT AUTOMATED 219 10*3/uL (130-400); RED BLOOD COUNT 3.33 10*6/uL (4.50-5.90); RED CELL DISTRI WIDTH 14.3 % (0-14.5); WHITE BLOOD COUNT 5.7 10*3/uL (4.8-10.8)
[2021-10-30 08:00] VITALS: BP 114/59
[2021-10-30 12:00] VITALS: BP 115/62
[2021-10-30 16:00] VITALS: BP 133/72
[2021-10-30 20:00] VITALS: BP 131/71
[2021-10-31] VITALS: BP 128/69
[2021-10-31 04:00] VITALS: BP 122/67
[2021-10-31 06:59] LABS: BILIRUBIN Negative (Negative); BLOOD Negative (Negative); CLARITY Clear (Clear); COLOR Yellow (Yellow); GLUCOSE Negative (Negative); KETONE Negative (Negative); LEUKO ESTERASE Negative (Negative); NITRITE Negative (Negative)
[2021-10-31 07:11] LABS: BACTERIA TRACE; EPITHELIAL CELLS 0-2; MUCOUS 2+
[2021-10-31 08:00] VITALS: BP 121/72
[2021-10-31 08:08] LABS: IMMUNOGLOBULIN M, QNT 37 mg/dL (15-143); RHEUMATOID FACTOR 21.6 IU/mL (<14.0)
[2021-10-31 12:00] VITALS: BP 140/70
[2021-10-31 16:00] VITALS: BP 125/60
[2021-10-31 20:00] VITALS: BP 131/77
[2021-11-01] VITALS: BP 128/71
[2021-11-01 05:37] LABS: BUN 13 mg/dl (7-24); CHLORIDE 96 mmol/L (98-107); CREATININE 0.44 mg/dL (0.70-1.30); POTASSIUM 4.4 mmol/L (3.5-5.1); SODIUM 138 mmol/L (136-145)
[2021-11-01 06:28] LABS: BASO % 0.3 % (0.0-1.0); EOS # 0.2 10*3/uL (0.0-0.4); EOS % 2.2 % (1.0-4.0); HEMATOCRIT 34.4 % (42.0-52.0); LYMPH # 0.9 10*3/uL (1.3-4.4); MEAN CORPUSCULAR HGB 28.3 pg (27.0-31.0); MEAN CORPUSCULAR HGB CONC 30.8 g/dl (33.0-37.0); MEAN PLATELET VOLUME 9.2 fl (9.6-12.3); MONO # 0.8 10*3/uL (0.1-1.0); MONO % 8.7 % (3.0-9.0); NEUT # 7.3 10*3/uL (2.3-7.9); NEUT % 78.4 % (47.0-73.0); PLATELET COUNT AUTOMATED 446 10*3/uL (130-400); RED BLOOD COUNT 3.74 10*6/uL (4.50-5.90); RED CELL DISTRI WIDTH 14.4 % (0-14.5); WHITE BLOOD COUNT 9.3 10*3/uL (4.8-10.8)
[2021-11-01 08:00] VITALS: BP 134/74
[2021-11-01 12:00] VITALS: BP 137/72
[2021-11-01 16:00] VITALS: BP 144/82
[2021-11-01 17:06] LABS: ATYPICAL PANCA <1:20 titer (Neg:<1:20); CYTOPLASMIC (C-ANCA) <1:20 titer (Neg:<1:20)
[2021-11-01 20:00] VITALS: BP 117/72
[2021-11-02] VITALS: BP 131/66
[2021-11-02 00:06] LABS: IGG SUBCLASS 1 347 mg/dL (248-810); IGG SUBCLASS 2 175 mg/dL (130-555); IGG SUBCLASS 3 32 mg/dL (15-102); IGG SUBCLASS 4 9 mg/dL (2-96); IMMUNOGLOBULIN G, QNT 609 mg/dL (603-1613)
[2021-11-02 06:09] LABS: BASO % 0.3 % (0.0-1.0); EOS # 0.2 10*3/uL (0.0-0.4); EOS % 2.7 % (1.0-4.0); HEMATOCRIT 32.2 % (42.0-52.0); LYMPH # 0.7 10*3/uL (1.3-4.4); LYMPH % 9.3 % (27.0-41.0); MEAN CELL VOLUME 90.7 fl (80.0-94.0); MEAN CORPUSCULAR HGB 27.9 pg (27.0-31.0); MEAN CORPUSCULAR HGB CONC 30.7 g/dl (33.0-37.0); MONO # 0.6 10*3/uL (0.1-1.0); NEUT # 5.5 10*3/uL (2.3-7.9); NEUT % 79.1 % (47.0-73.0); PLATELET COUNT AUTOMATED 446 10*3/uL (130-400); RED BLOOD COUNT 3.55 10*6/uL (4.50-5.90); RED CELL DISTRI WIDTH 14.3 % (0-14.5)
[2021-11-02 06:22] LABS: ALKALINE PHOSPHATASE 48 U/L (45-117); BUN 12 mg/dl (7-24); CHLORIDE 94 mmol/L (98-107); SGOT/AST 13 IU/L (3-35); SGPT/ALT 14 U/L (12-78); SODIUM 137 mmol/L (136-145); TOTAL PROTEIN 5.6 gm/dL (6.4-8.2)
[2021-11-02 08:00] VITALS: BP 152/86
[2021-11-02] MEDS ORDERED: LEVOFLOXAC750 MG/150 IV (14:06)
[2021-11-02 15:07] LABS: ALDOLASE 4.1 U/L (3.3-10.3); ANGIOTENSIN-CONVERTING ENZYME 39 U/L (14-82)
[2021-11-02 16:00] VITALS: BP 150/66
[2021-11-02 20:00] VITALS: BP 137/88
[2021-11-02 21:06] LABS: TB1 Ag VALUE 0.03 IU/mL (.)
== END 2021-11-02 21:31 | disposition short-term general hospital (02) | DRG 871 ==
LOC: ED 09:04 → EDHOLD 10:56 → 4E 10:56
PROVIDERS: Emergency Medicine; Hospitalist; Internal Medicine; Internal Medicine Critical Care Medicine; Internal Medicine Infectious Disease; Registered Nurse; ADMIT Family Medicine; ATTEND Family Medicine
PROC: 0BC98ZZ Extirpation of Matter from Lingula Bronchus, Via Natural or Artificial Opening Endoscopic (ICD-10-PCS; principal; 2021-10-27)
PROC: 0BC48ZZ Extirpation of Matter from Right Upper Lobe Bronchus, Via Natural or Artificial Opening Endoscopic (ICD-10-PCS; 2021-10-27)
PROC: 0BC88ZZ Extirpation of Matter from Left Upper Lobe Bronchus, Via Natural or Artificial Opening Endoscopic (ICD-10-PCS; 2021-10-27)
PROC: 0BC58ZZ Extirpation of Matter from Right Middle Lobe Bronchus, Via Natural or Artificial Opening Endoscopic (ICD-10-PCS; 2021-10-27)
PROC: 0BC38ZZ Extirpation of Matter from Right Main Bronchus, Via Natural or Artificial Opening Endoscopic (ICD-10-PCS; 2021-10-27)
PROC: 0BC78ZZ Extirpation of Matter from Left Main Bronchus, Via Natural or Artificial Opening Endoscopic (ICD-10-PCS; 2021-10-27)
PROC: 0BC68ZZ Extirpation of Matter from Right Lower Lobe Bronchus, Via Natural or Artificial Opening Endoscopic (ICD-10-PCS; 2021-10-27)
PROC: 0BCB8ZZ Extirpation of Matter from Left Lower Lobe Bronchus, Via Natural or Artificial Opening Endoscopic (ICD-10-PCS; 2021-10-27)
PROC: 0BC18ZZ Extirpation of Matter from Trachea, Via Natural or Artificial Opening Endoscopic (ICD-10-PCS; 2021-10-27)
DX: A41.9 Sepsis, unspecified organism (principal); J15.6 Pneumonia due to other Gram-negative bacteria; J96.21 Acute and chronic respiratory failure with hypoxia; J96.22 Acute and chronic respiratory failure with hypercapnia; S22.000A Wedge compression fracture of unspecified thoracic vertebra, initial encounter for closed fracture; E44.0 Moderate protein-calorie malnutrition; Z68.1 Body mass index [BMI] 19.9 or less, adult; E87.1 Hypo-osmolality and hyponatremia; T17.590A Other foreign object in bronchus causing asphyxiation, initial encounter; B96.1 Klebsiella pneumoniae [K. pneumoniae] as the cause of diseases classified elsewhere; X58.XXXA Exposure to other specified factors, initial encounter; R65.20 Severe sepsis without septic shock; I10 Essential (primary) hypertension; K21.9 Gastro-esophageal reflux disease without esophagitis; D64.9 Anemia, unspecified; S32.020S Wedge compression fracture of second lumbar vertebra, sequela; Y93.89 Activity, other specified; Y92.89 Other specified places as the place of occurrence of the external cause; Y99.8 Other external cause status; Z79.51 Long term (current) use of inhaled steroids; Z79.82 Long term (current) use of aspirin

== ENCOUNTER → 2021-12-17 | Outpatient (CLI) | payer MEDICARE ==
[~2021-12-17] MED LIST changes: +ALLERGY RELIEF10 M2 PO; +ASMANEX HFA13 G1 INH; +LEVOFLOXAC750 MG/150 IV; +STIOLTO RESPIMAT4 GM INH
== END | disposition home or self-care (01) ==
LOC: RAD 10:44
PROVIDERS: ATTEND Internal Medicine
DX: J90 Pleural effusion, not elsewhere classified (principal)

== ENCOUNTER → 2021-12-31 | Outpatient (CLI) | payer MEDICARE ==
[2021-12-31 14:42] LABS: BASO % 0.4 % (0.0-1.0); EOS # 0.1 10*3/uL (0.0-0.4); EOS % 0.7 % (1.0-4.0); HEMATOCRIT 34.3 % (42.0-52.0); LYMPH # 0.7 10*3/uL (1.3-4.4); LYMPH % 7.1 % (27.0-41.0); MEAN PLATELET VOLUME 8.4 fl (9.6-12.3); MONO # 0.6 10*3/uL (0.1-1.0); MONO % 6.4 % (3.0-9.0); NEUT # 8.4 10*3/uL (2.3-7.9); PLATELET COUNT AUTOMATED 376 10*3/uL (130-400); RED BLOOD COUNT 3.81 10*6/uL (4.50-5.90); RED CELL DISTRI WIDTH 15.3 % (0-14.5); WHITE BLOOD COUNT 9.9 10*3/uL (4.8-10.8)
[2021-12-31 15:09] LABS: ALKALINE PHOSPHATASE 62 U/L (45-117); BUN 16 mg/dl (7-24); CHLORIDE 98 mmol/L (98-107); CHOLESTEROL 131 mg/dL (<200); CREATININE 0.49 mg/dL (0.70-1.30); LDL CHOLESTEROL 55 mg/dL (9-159); POTASSIUM 4.1 mmol/L (3.5-5.1); SGOT/AST 16 IU/L (3-35); SGPT/ALT 11 U/L (12-78); SODIUM 140 mmol/L (136-145); TOTAL PROTEIN 6.7 gm/dL (6.4-8.2); TRIGLYCERIDES 63 mg/dl (<150)
[2022-01-01 07:53] LABS: VITAMIN D, 25-HYDROXY 50.5 ng/mL (30-100)
== END | disposition home or self-care (01) ==
LOC: CT 14:00 → LAB 14:06
PROVIDERS: Internal Medicine; ATTEND Internal Medicine Critical Care Medicine
DX: J44.9 Chronic obstructive pulmonary disease, unspecified (principal); M51.34 Other intervertebral disc degeneration, thoracic region; R91.1 Solitary pulmonary nodule; Z87.891 Personal history of nicotine dependence; Z99.81 Dependence on supplemental oxygen; J96.11 Chronic respiratory failure with hypoxia; J18.8 Other pneumonia, unspecified organism; J90 Pleural effusion, not elsewhere classified; I25.10 Atherosclerotic heart disease of native coronary artery without angina pectoris; I70.0 Atherosclerosis of aorta; R53.81 Other malaise; E55.9 Vitamin D deficiency, unspecified; R79.89 Other specified abnormal findings of blood chemistry; D51.9 Vitamin B12 deficiency anemia, unspecified; E03.9 Hypothyroidism, unspecified; D52.9 Folate deficiency anemia, unspecified; Z13.0 Encounter for screening for diseases of the blood and blood-forming organs and certain disorders involving the immune mechanism; Z13.1 Encounter for screening for diabetes mellitus; Z13.21 Encounter for screening for nutritional disorder; Z13.220 Encounter for screening for lipoid disorders; Z13.89 Encounter for screening for other disorder; Z13.6 Encounter for screening for cardiovascular disorders

== ENCOUNTER → 2022-01-11 | Day surgery (SDC) | payer MEDICARE ==
[~2022-01-11] VITALS: Ht 182.8 cm; Wt 58.1 kg
[2022-01-11 08:51] VITALS: BP 115/62
[2022-01-11 10:19] VITALS: BP 102/69
[2022-01-11 10:34] VITALS: BP 101/75
[2022-01-11 10:49] VITALS: BP 114/57
[2022-01-12 16:07] LABS: ACID FAST SPEC PROCESSING Concentration (.)
== END | disposition home or self-care (01) ==
LOC: SDC 01-07 09:30
PROVIDERS: ATTEND Internal Medicine Critical Care Medicine
DX: J98.11 Atelectasis (principal); J43.9 Emphysema, unspecified; Z87.891 Personal history of nicotine dependence; K21.9 Gastro-esophageal reflux disease without esophagitis; Z90.49 Acquired absence of other specified parts of digestive tract; Z79.899 Other long term (current) drug therapy

== ENCOUNTER → 2022-01-26 | Outpatient (CLI) | payer MEDICARE | END | disposition home or self-care (01) | LOC: RAD 14:18 | PROVIDERS: ATTEND Internal Medicine Critical Care Medicine | DX: J98.11 Atelectasis (principal); J96.11 Chronic respiratory failure with hypoxia; Z99.81 Dependence on supplemental oxygen; J43.9 Emphysema, unspecified; Z87.891 Personal history of nicotine dependence ==

== ENCOUNTER → 2022-02-18 | Outpatient (CLI) | payer MEDICARE | END | disposition home or self-care (01) | LOC: RAD 11:14 | PROVIDERS: ATTEND Internal Medicine Critical Care Medicine | DX: J44.9 Chronic obstructive pulmonary disease, unspecified (principal); J96.11 Chronic respiratory failure with hypoxia; R91.1 Solitary pulmonary nodule; J15.0 Pneumonia due to Klebsiella pneumoniae; Z87.891 Personal history of nicotine dependence; Z99.81 Dependence on supplemental oxygen ==

== ENCOUNTER 2022-04-19 18:29 | Inpatient (IN) | payer MEDICARE ==
[2022-04-19] VITALS (10 sets, daily range): BP systolic 66–107; BP diastolic 36–59
[~2022-04-19] VITALS: Ht 177.8 cm; Wt 57.5 kg
[2022-04-19 19:12] LABS: HEMATOCRIT 35.2 % (42.0-52.0); MEAN CELL VOLUME 90.7 fl (80.0-94.0); MEAN CORPUSCULAR HGB 28.6 pg (27.0-31.0); MEAN CORPUSCULAR HGB CONC 31.5 g/dl (33.0-37.0); PLATELET COUNT AUTOMATED 246 10*3/uL (130-400); RED BLOOD COUNT 3.88 10*6/uL (4.50-5.90); RED CELL DISTRI WIDTH 13.8 % (0-14.5); WHITE BLOOD COUNT 30.9 10*3/uL (4.8-10.8)
[2022-04-19 19:13] LABS: MANUAL DIFF REFLEX YES
[2022-04-19 19:23] LABS: ACT PARTIAL THROMBO TIME 28.9 SECONDS (20.0-32.1); INTERNATIONAL NORM RATIO 1.1 (2.0-3.5)
[2022-04-19 19:31] LABS: PLATELET SUFFICIENCY NORMAL (NORMAL); TOTAL CELLS COUNTED 100 #CELLS
[2022-04-19 19:33] LABS: ACANTHOCYTES FEW
[2022-04-19 19:39] LABS: ALKALINE PHOSPHATASE 50 U/L (45-117); BUN 24 mg/dl (7-24); CHLORIDE 100 mmol/L (98-107); CREATININE 1.14 mg/dL (0.70-1.30); POTASSIUM 3.8 mmol/L (3.5-5.1); SGOT/AST 18 IU/L (3-35); SGPT/ALT 15 U/L (12-78); SODIUM 139 mmol/L (136-145); TOTAL PROTEIN 6.8 gm/dL (6.4-8.2)
[2022-04-20] VITALS (53 sets, daily range): BP systolic 88–136; BP diastolic 44–74
[2022-04-20 06:42] LABS: HEMATOCRIT 30.5 % (42.0-52.0); MEAN CELL VOLUME 90.2 fl (80.0-94.0); MEAN CORPUSCULAR HGB 28.7 pg (27.0-31.0); MEAN CORPUSCULAR HGB CONC 31.8 g/dl (33.0-37.0); MEAN PLATELET VOLUME 10.4 fl (9.6-12.3); PLATELET COUNT AUTOMATED 258 10*3/uL (130-400); RED BLOOD COUNT 3.38 10*6/uL (4.50-5.90); RED CELL DISTRI WIDTH 14.2 % (0-14.5); WHITE BLOOD COUNT 35.5 10*3/uL (4.8-10.8)
[2022-04-20 06:45] LABS: ALKALINE PHOSPHATASE 44 U/L (45-117); BUN 23 mg/dl (7-24); CHLORIDE 105 mmol/L (98-107); CREATININE 0.82 mg/dL (0.70-1.30); POTASSIUM 4.1 mmol/L (3.5-5.1); SGOT/AST 12 IU/L (3-35); SGPT/ALT 12 U/L (12-78); SODIUM 139 mmol/L (136-145)
[2022-04-20 06:52] LABS: MANUAL DIFF REFLEX YES
[2022-04-20 07:34] LABS: OVALOCYTES FEW; PLATELET SUFFICIENCY NORMAL (NORMAL); SCHISTOCYTES FEW; TOTAL CELLS COUNTED 100 #CELLS; TOXIC GRANULATION SLIGHT
[2022-04-20 07:35] LABS: ACANTHOCYTES FEW; BURR CELLS FEW; POLYCHROMASIA SLIGHT
[2022-04-20] MEDS ORDERED: AVODART0.5 M1 PO (17:43)
[2022-04-20] MEDS ORDERED: FLOMAX0.4 MG PO (17:43)
[2022-04-21] VITALS (16 sets, daily range): BP systolic 99–126; BP diastolic 53–69
[2022-04-21 05:22] LABS: BUN 22 mg/dl (7-24); CHLORIDE 105 mmol/L (98-107); CREATININE 0.79 mg/dL (0.70-1.30); POTASSIUM 4.2 mmol/L (3.5-5.1); SODIUM 137 mmol/L (136-145)
[2022-04-21 06:26] LABS: HEMATOCRIT 28.9 % (42.0-52.0); MEAN CELL VOLUME 89.8 fl (80.0-94.0); MEAN CORPUSCULAR HGB 28.9 pg (27.0-31.0); MEAN CORPUSCULAR HGB CONC 32.2 g/dl (33.0-37.0); PLATELET COUNT AUTOMATED 225 10*3/uL (130-400); RED BLOOD COUNT 3.22 10*6/uL (4.50-5.90); RED CELL DISTRI WIDTH 14.1 % (0-14.5); WHITE BLOOD COUNT 18.3 10*3/uL (4.8-10.8)
[2022-04-21 06:33] LABS: MANUAL DIFF REFLEX YES
[2022-04-21 06:59] LABS: TOTAL CELLS COUNTED 100 #CELLS; TOXIC GRANULATION SLIGHT
[2022-04-21 07:00] LABS: BURR CELLS FEW; OVALOCYTES FEW; PLATELET SUFFICIENCY NORMAL (NORMAL); POLYCHROMASIA SLIGHT
[2022-04-22] VITALS: BP 117/70
[2022-04-22 04:00] VITALS: BP 110/63
[2022-04-22 05:36] LABS: BUN 25 mg/dl (7-24); CHLORIDE 106 mmol/L (98-107); CREATININE 0.76 mg/dL (0.70-1.30); SODIUM 138 mmol/L (136-145)
[2022-04-22 06:08] LABS: MEAN CELL VOLUME 89.8 fl (80.0-94.0); MEAN CORPUSCULAR HGB 28.2 pg (27.0-31.0); MEAN CORPUSCULAR HGB CONC 31.4 g/dl (33.0-37.0); MEAN PLATELET VOLUME 10.4 fl (9.6-12.3); PLATELET COUNT AUTOMATED 241 10*3/uL (130-400); RED BLOOD COUNT 3.23 10*6/uL (4.50-5.90); RED CELL DISTRI WIDTH 14.2 % (0-14.5); WHITE BLOOD COUNT 12.6 10*3/uL (4.8-10.8)
[2022-04-22 06:10] LABS: MANUAL DIFF REFLEX YES
[2022-04-22 07:08] LABS: TOTAL CELLS COUNTED 100 #CELLS
[2022-04-22 07:09] LABS: BURR CELLS FEW; PLATELET SUFFICIENCY NORMAL (NORMAL); POLYCHROMASIA SLIGHT; TOXIC GRANULATION SLIGHT
[2022-04-22 08:00] VITALS: BP 132/72
[2022-04-22 12:00] VITALS: BP 114/51
[2022-04-22 16:00] VITALS: BP 108/56
[2022-04-22 20:00] VITALS: BP 107/53
[2022-04-23] VITALS: BP 128/72
[2022-04-23 06:08] LABS: HEMATOCRIT 30.9 % (42.0-52.0); MEAN CELL VOLUME 91.4 fl (80.0-94.0); MEAN CORPUSCULAR HGB 28.4 pg (27.0-31.0); MEAN CORPUSCULAR HGB CONC 31.1 g/dl (33.0-37.0); MEAN PLATELET VOLUME 10.4 fl (9.6-12.3); PLATELET COUNT AUTOMATED 290 10*3/uL (130-400); RED BLOOD COUNT 3.38 10*6/uL (4.50-5.90); RED CELL DISTRI WIDTH 14.3 % (0-14.5); WHITE BLOOD COUNT 11.7 10*3/uL (4.8-10.8)
[2022-04-23 06:15] LABS: MANUAL DIFF REFLEX YES
[2022-04-23] MEDS ORDERED: PREDNISONE5 MG PO (06:42)
[2022-04-23 07:25] LABS: PLATELET SUFFICIENCY NORMAL (NORMAL); TOTAL CELLS COUNTED 100 #CELLS
[2022-04-23 08:00] VITALS: BP 145/78
== END 2022-04-23 12:30 | disposition home or self-care (01) | DRG 871 ==
LOC: ED 18:29 → EDHOLD 22:42 → ICCU 22:42 → 5E 04-22 12:58
PROVIDERS: Student in an Organized Health Care Education/Training Program; ADMIT Internal Medicine; ATTEND Internal Medicine
PROC: 02HV33Z Insertion of Infusion Device into Superior Vena Cava, Percutaneous Approach (ICD-10-PCS; principal; 2022-04-22)
PROC: B548ZZA Ultrasonography of Superior Vena Cava, Guidance (ICD-10-PCS; 2022-04-22)
DX: A41.9 Sepsis, unspecified organism (principal); J15.0 Pneumonia due to Klebsiella pneumoniae; R65.21 Severe sepsis with septic shock; N17.0 Acute kidney failure with tubular necrosis; J44.1 Chronic obstructive pulmonary disease with (acute) exacerbation; E44.0 Moderate protein-calorie malnutrition; J44.0 Chronic obstructive pulmonary disease with (acute) lower respiratory infection; Z68.1 Body mass index [BMI] 19.9 or less, adult; J96.10 Chronic respiratory failure, unspecified whether with hypoxia or hypercapnia; I95.9 Hypotension, unspecified; E83.42 Hypomagnesemia; R62.7 Adult failure to thrive; N40.0 Benign prostatic hyperplasia without lower urinary tract symptoms; K21.9 Gastro-esophageal reflux disease without esophagitis; Z90.49 Acquired absence of other specified parts of digestive tract

== ENCOUNTER → 2022-07-22 | Outpatient (CLI) | payer MEDICARE ==
[~2022-07-22] MED LIST changes: +AVODART0.5 M1 PO; +BUMETANIDE0.5 MG PO; +BUMETANIDE1 MG PO; +FLOMAX0.4 MG PO; +K-TAB20 MEQ PO; +LISINOPRIL2.5 MG PO; +METOPROLOL SUCC25 M2 PO; +PREDNISONE5 MG PO
== END | disposition home or self-care (01) ==
LOC: CT 01:32
PROVIDERS: ATTEND Internal Medicine Critical Care Medicine
DX: J43.9 Emphysema, unspecified (principal); J90 Pleural effusion, not elsewhere classified; I25.10 Atherosclerotic heart disease of native coronary artery without angina pectoris; R91.8 Other nonspecific abnormal finding of lung field

== ENCOUNTER → 2022-07-28 | Outpatient (CLI) | payer MEDICARE ==
[2022-07-28 10:16] LABS: ACT PARTIAL THROMBO TIME 28.9 SECONDS (20.0-32.1); INTERNATIONAL NORM RATIO 1.1 (2.0-3.5)
== END | disposition home or self-care (01) ==
LOC: US 00:50
PROVIDERS: ATTEND Internal Medicine Critical Care Medicine
DX: J90 Pleural effusion, not elsewhere classified (principal); J98.11 Atelectasis; J84.10 Pulmonary fibrosis, unspecified; J44.9 Chronic obstructive pulmonary disease, unspecified; J96.11 Chronic respiratory failure with hypoxia; Z99.81 Dependence on supplemental oxygen; Z87.891 Personal history of nicotine dependence; J94.8 Other specified pleural conditions

== ENCOUNTER 2022-11-09 18:13 | Inpatient (IN) | payer MEDICARE ==
[~2022-11-09] VITALS: Ht 177.8 cm; Wt 52.3 kg
[~2022-11-09 18:13] MED LIST changes: +ASMANEX HFA13 GM INH; +ATORVASTATIN CA20 M1 PO; +BUSPIRONE HCL10 MG PO; +CEFDINIR300 MG PO; +CETIRIZINE HYDR10 MG PO; +CIPRO500 MG PO; +DALI500T PO; +IMDUR SA30 MG PO; +IPRATROPIU0.2 MG/1 M NEB; +LOPERAMIDE HCL2 MG PO; +MIRTAZAPINE15 M2 PO; +PROVENTIL HFA6.7 GM INH; +STRIVERDI RESPIM4 GM INH; +ZESTORETIC 10-1 EACH PO
[2022-11-09 18:41] VITALS: BP 98/61
[2022-11-09 18:55] LABS: BASO % 0.3 % (0.0-1.0); HEMATOCRIT 38.4 % (42.0-52.0); LYMPH # 0.5 10*3/uL (1.3-4.4); LYMPH % 7.5 % (27.0-41.0); MEAN CELL VOLUME 91.4 fl (80.0-94.0); MEAN CORPUSCULAR HGB 28.3 pg (27.0-31.0); MONO # 0.5 10*3/uL (0.1-1.0); MONO % 6.6 % (3.0-9.0); NEUT # 5.8 10*3/uL (2.3-7.9); NEUT % 85.2 % (47.0-73.0); PLATELET COUNT AUTOMATED 314 10*3/uL (130-400); RED CELL DISTRI WIDTH 14.4 % (0-14.5); WHITE BLOOD COUNT 6.8 10*3/uL (4.8-10.8)
[2022-11-09 19:22] LABS: ALKALINE PHOSPHATASE 61 U/L (46-116); BUN 17 mg/dl (9-23); CHLORIDE 98 mmol/L (98-107); POTASSIUM 4.4 mmol/L (3.4-5.1); SGPT/ALT 11 U/L (10-49); TOTAL PROTEIN 7.1 gm/dL (6.0-8.0)
[2022-11-09 21:30] VITALS: BP 82/51
[2022-11-09] MEDS ORDERED: ACETAMINOPHEN325 M2 PO (21:30)
[2022-11-09] MEDS ORDERED: CEFTRIAXONE2 G1 IV (21:35)
[2022-11-09] MEDS ORDERED: COLACE100 MG PO (21:38)
[2022-11-09] MEDS ORDERED: FINASTERIDE5 M1 PO (21:44)
[2022-11-09] MEDS ORDERED: ECOTRIN81 M1 PO (21:44)
[2022-11-09] MEDS ORDERED: ARNUITY ELLIP200 MCG INH (21:46)
[2022-11-09] MEDS ORDERED: ISOSORBIDE MONO20 MG PO (21:47)
[2022-11-09] MEDS ORDERED: LOPRESSOR25 MG PO (22:00)
[2022-11-09] MEDS ORDERED: STRIVERDI RESPIM4 GM INH (22:01)
[2022-11-09] MEDS ORDERED: SPIRIVA RESPIMAT4 G1 INH (22:07)
[2022-11-09 22:51] VITALS: BP 101/65
[2022-11-09 22:58] VITALS: BP 94/60
[2022-11-09 23:25] VITALS: BP 103/64
[2022-11-10 00:32] VITALS: BP 92/59
[2022-11-10 01:00] VITALS: BP 90/60
[2022-11-10 08:00] VITALS: BP 95/57
[2022-11-10 12:00] VITALS: BP 90/56
[2022-11-10 16:00] VITALS: BP 96/47
[2022-11-10 20:00] VITALS: BP 106/67
[2022-11-11] VITALS: BP 104/65
[2022-11-11 06:27] LABS: BASO % 0.4 % (0.0-1.0); HEMATOCRIT 31.3 % (42.0-52.0); LYMPH # 0.8 10*3/uL (1.3-4.4); LYMPH % 14.1 % (27.0-41.0); MEAN CELL VOLUME 90.7 fl (80.0-94.0); MEAN CORPUSCULAR HGB 27.8 pg (27.0-31.0); MEAN CORPUSCULAR HGB CONC 30.7 g/dl (33.0-37.0); MEAN PLATELET VOLUME 10.6 fl (9.6-12.3); MONO # 0.9 10*3/uL (0.1-1.0); MONO % 15.8 % (3.0-9.0); NEUT # 3.7 10*3/uL (2.3-7.9); NEUT % 69.1 % (47.0-73.0); PLATELET COUNT AUTOMATED 247 10*3/uL (130-400); RED BLOOD COUNT 3.45 10*6/uL (4.50-5.90); RED CELL DISTRI WIDTH 14.4 % (0-14.5); WHITE BLOOD COUNT 5.4 10*3/uL (4.8-10.8)
[2022-11-11 06:48] LABS: BUN 17 mg/dl (9-23); CHLORIDE 98 mmol/L (98-107); POTASSIUM 4.1 mmol/L (3.4-5.1)
[2022-11-11 08:00] VITALS: BP 113/60
[2022-11-11 12:00] VITALS: BP 80/47
[2022-11-11 16:00] VITALS: BP 86/44
[2022-11-11 20:00] VITALS: BP 92/50
[2022-11-12] VITALS: BP 86/53
[2022-11-12 16:00] VITALS: BP 106/66
[2022-11-12 21:23] VITALS: BP 100/48
[2022-11-13] VITALS: BP 112/70
[2022-11-13 06:50] LABS: BASO % 0.2 % (0.0-1.0); HEMATOCRIT 34.5 % (42.0-52.0); LYMPH # 0.7 10*3/uL (1.3-4.4); LYMPH % 11.4 % (27.0-41.0); MEAN CELL VOLUME 89.8 fl (80.0-94.0); MEAN CORPUSCULAR HGB 27.9 pg (27.0-31.0); MEAN PLATELET VOLUME 10.2 fl (9.6-12.3); MONO # 0.5 10*3/uL (0.1-1.0); MONO % 9.2 % (3.0-9.0); NEUT # 4.7 10*3/uL (2.3-7.9); NEUT % 78.7 % (47.0-73.0); PLATELET COUNT AUTOMATED 291 10*3/uL (130-400); RED BLOOD COUNT 3.84 10*6/uL (4.50-5.90); WHITE BLOOD COUNT 5.9 10*3/uL (4.8-10.8)
[2022-11-13 07:07] LABS: BUN 21 mg/dl (9-23); CHLORIDE 99 mmol/L (98-107); POTASSIUM 4.2 mmol/L (3.4-5.1)
[2022-11-13 08:00] VITALS: BP 127/75
[2022-11-13 12:00] VITALS: BP 114/68
[2022-11-13 16:00] VITALS: BP 93/57
[2022-11-13 20:00] VITALS: BP 94/64
[2022-11-14] VITALS: BP 98/67
[2022-11-14 08:00] VITALS: BP 123/67
[2022-11-14 11:40] VITALS: BP 95/68
[2022-11-14 16:00] VITALS: BP 102/63
[2022-11-14 20:00] VITALS: BP 104/65
[2022-11-15] VITALS: BP 103/62
[2022-11-15 08:00] VITALS: BP 108/70
[2022-11-15] MEDS ORDERED: JARDIANCE10 MG PO (08:12)
[2022-11-15] MEDS ORDERED: DALI500T PO (08:15)
[2022-11-15 12:00] VITALS: BP 114/74
== END 2022-11-15 12:50 | disposition home health service (06) | DRG 291 ==
LOC: ED 18:13 → EDHOLD 21:35 → 4E 21:35
PROVIDERS: Emergency Medicine; ADMIT Internal Medicine; ATTEND Internal Medicine
PROC: 5A0935A Assistance with Respiratory Ventilation, Less than 24 Consecutive Hours, High Flow/Velocity Cannula (ICD-10-PCS; 2022-11-09)
PROC: 5A0945A Assistance with Respiratory Ventilation, 24-96 Consecutive Hours, High Flow/Velocity Cannula (ICD-10-PCS; 2022-11-10)
PROC: 5A0945A Assistance with Respiratory Ventilation, 24-96 Consecutive Hours, High Flow/Velocity Cannula (ICD-10-PCS; 2022-11-12)
PROC: 5A0935A Assistance with Respiratory Ventilation, Less than 24 Consecutive Hours, High Flow/Velocity Cannula (ICD-10-PCS; principal; 2022-11-15)
DX: I11.0 Hypertensive heart disease with heart failure (principal); I50.31 Acute diastolic (congestive) heart failure; J96.21 Acute and chronic respiratory failure with hypoxia; J44.1 Chronic obstructive pulmonary disease with (acute) exacerbation; Z68.1 Body mass index [BMI] 19.9 or less, adult; R73.9 Hyperglycemia, unspecified; J84.10 Pulmonary fibrosis, unspecified; N40.0 Benign prostatic hyperplasia without lower urinary tract symptoms; R62.7 Adult failure to thrive; K21.9 Gastro-esophageal reflux disease without esophagitis; B96.1 Klebsiella pneumoniae [K. pneumoniae] as the cause of diseases classified elsewhere; Z51.5 Encounter for palliative care; Z79.82 Long term (current) use of aspirin; Z79.899 Other long term (current) drug therapy; Z90.49 Acquired absence of other specified parts of digestive tract

== ENCOUNTER 2023-05-13 18:38 | Emergency (ER) | payer MEDICARE ==
[~2023-05-13] VITALS: Wt 63.5 kg
[~2023-05-13 18:38] MED LIST changes: +ACETAMINOPHEN325 M2 PO; +ARNUITY ELLIP200 MCG INH; +CEFTRIAXONE2 G1 IV; +COLACE100 MG PO; +ECOTRIN81 M1 PO; +FINASTERIDE5 M1 PO; +ISOSORBIDE MONO20 MG PO; +JARDIANCE10 MG PO; +LOPRESSOR25 MG PO; +SPIRIVA RESPIMAT4 G1 INH
== END 2023-05-13 20:24 ==
LOC: ED 18:38
DX: I46.9 Cardiac arrest, cause unspecified (principal); R15.9 Full incontinence of feces; Z79.899 Other long term (current) drug therapy; Z79.82 Long term (current) use of aspirin; Z98.890 Other specified postprocedural states; Z90.49 Acquired absence of other specified parts of digestive tract